=== PATIENT | male | born 1970 | race Two or more races ===

== ENCOUNTER 2022-12-03 09:35 | Emergency (ER) | payer MEDICAID ==
[~2022-12-03] VITALS: Ht 162.6 cm; Wt 62.0 kg
[2022-12-03 10:31] VITALS: BP 126/94; PULSE 78; RESP 18; TEMP 98.1; O2SAT 98
[2022-12-03] MEDS ORDERED: DexAMETHasone SOD PHOS 10MG/1ML VIAL INJ IM ONE (11:00)
[2022-12-03] MEDS ORDERED: BENZ100C97 PO (11:06)
[2022-12-03] MEDS ORDERED: PROM1SOL4 PO (11:06)
[2022-12-03] MEDS ORDERED: AUG875T PO (11:06)
== END 2022-12-03 11:21 | disposition home or self-care (01) ==
LOC: ER 09:35
DX: J06.9 Acute upper respiratory infection, unspecified (principal); J02.9 Acute pharyngitis, unspecified
CPT/HCPCS: 96372; 99283; J1100

== ENCOUNTER 2022-12-09 16:15 | Emergency (ER) | payer MEDICAID ==
[~2022-12-09] VITALS: Ht 162.6 cm; Wt 71.1 kg
[~2022-12-09 16:15] MED LIST: AUG875T PO; BENZ100C97 PO; PROM1SOL4 PO
[2022-12-09 22:40] VITALS: BP 122/93; PULSE 75; RESP 19; TEMP 98.5; O2SAT 98
[2022-12-09] MEDS ORDERED: DIPHENOXYLATE W/ATROPINE 2.5 MG TAB PO ONE (23:00)
[2022-12-09] MEDS ORDERED: DIPH2.5T73 PO ×2 (23:04→23:24)
== END 2022-12-09 23:21 | disposition home or self-care (01) ==
LOC: ER 16:15
DX: K52.1 Toxic gastroenteritis and colitis (principal); T36.95XA Adverse effect of unspecified systemic antibiotic, initial encounter; Z79.899 Other long term (current) drug therapy; Y92.89 Other specified places as the place of occurrence of the external cause

== ENCOUNTER 2022-12-14 05:46 | Emergency (ER) | payer MEDICAID ==
[~2022-12-14] VITALS: Ht 162.6 cm; Wt 70.4 kg
[~2022-12-14 05:46] MED LIST changes: +DIPH2.5T73 PO
[2022-12-14 07:29] LABS: Basophils # (auto) 0 10 ^3/uL (0-0.2); Basophils % (auto) 0.4 % (0.0-2.0); Eosinophils # (auto) 0.1 10 ^3/uL (0-0.8); Eosinophils % (auto) 1.7 % (0.0-7.0); Hematocrit 45.7 % (41.0-53.0); Hemoglobin 15.8 g/dL (13.5-17.5); Lymphocytes # (auto) 1.3 10 ^3/uL (0.4-5.4); Lymphocytes % (auto) 20.7 % (10.0-50.0); Mean Corpuscular Hemoglobin 32.2 pg (28.0-32.0); Mean Corpuscular Hgb Conc. 34.6 g/dL (32.0-36.0); Mean Corpuscular Volume 93.2 fL (80.0-100.0); Monocytes # (auto) 0.5 10 ^3/uL (0-1.3); Monocytes % (auto) 8.7 % (0.0-12.0); Neutrophils # (auto) 4.3 10 ^3/uL (1.6-8.6); Neutrophils % (auto) 68.5 % (37.0-80.0); Nucleated Red Blood Cells % 0.1 %; Red Cell Distribution Width 13.1 % (11.8-14.3); White Blood Cell 6.2 10^3/uL (4.4-10.8)
[2022-12-14 08:05] LABS: Alanine Aminotransferase 89 U/L (7-40); Albumin 4.5 g/dL (3.2-4.8); Alkaline Phosphatase 104 U/L (46-116); Anion Gap 7.7 (5-15); Aspartate Aminotransferase 39 U/L (13-40); BUN/Creatinine Ratio 10.6 (10.0-20.0); Bilirubin, Total 0.8 mg/dL (0.2-1.0); Blood Urea Nitrogen 9 mg/dL (9-23); Calcium 9.5 mg/dL (8.7-10.4); Carbon Dioxide 27.3 mmol/L (20-30); Chloride 107 mmol/L (98-107); Glucose 83 mg/dL (74-106); Potassium 3.5 mmol/L (3.5-5.1); Sodium 142 mmol/L (136-145); Total Protein 7.4 g/dL (5.7-8.2)
[2022-12-14 12:40] VITALS: BP 125/92; PULSE 73; RESP 18; TEMP 98.4; O2SAT 97
== END 2022-12-14 12:44 | disposition home or self-care (01) ==
LOC: ER 05:46
DX: R07.89 Other chest pain (principal); R42 Dizziness and giddiness; R05.9 Cough, unspecified; Z79.2 Long term (current) use of antibiotics; Z79.899 Other long term (current) drug therapy
CPT/HCPCS: 36415; 71045; 80053; 84484; 85025; 93005